=== PATIENT | female | born 1950 | race Caucasian/White ===

== ENCOUNTER 2017-04-22 17:30 | Inpatient (IN) | payer MEDICARE, OTHER ==
[~2017-04-22] VITALS: Ht 162.6 cm; Wt 48.7 kg
[~2017-04-22 17:30] MED LIST: BACL10TA PO; BUDE180H IH; CALC-467 PO; CALC-590 PO; CARB-60 PO; CLON0.5T4 PO; COMBIH IH; GUAI600T PO; MULT1TAB70 PO; OXYB5TAB10 PO; VITAD400 PO
[2017-04-22] MEDS ORDERED: PARO10TA89 PO (17:43)
[2017-04-22] MEDS ORDERED: IPRA4AER IH (17:43)
[2017-04-22] MEDS ORDERED: DONE5TAB PO (17:43)
[2017-04-22] MEDS ORDERED: ASPIRIN 81 MG CHEWABLE TABLET PO ONE (18:00)
[2017-04-22] MEDS ORDERED: IPRATROPIUM BROMIDE 0.5 MG/2.5 ML NEB SOLUTION NEB ONE ×3 (18:00→22:15)
[2017-04-22] MEDS ORDERED: ALBUTEROL SULFATE 2.5 MG/0.5 ML NEB SOLUTION NEB ONE (18:00)
[2017-04-22 18:08] LABS: BASOPHILS % (AUTO) 0.8 % (0.0-2.0); EOSINOPHILS % (AUTO) 0.1 % (1.0-6.0); HEMATOCRIT 36.7 % (36-46); HEMOGLOBIN 12.3 g/dL (12.0-16.0); LYMPHOCYTES # (AUTO) 2.6 K/uL (1.0-4.8); LYMPHOCYTES % (AUTO) 18.3 % (22.0-44.0); MEAN CORPUSCULAR HEMOGLOBIN 32.3 pg (26.0-34.0); MEAN CORPUSCULAR HGB CONC 33.4 G/dL (31.0-37.0); MEAN CORPUSCULAR VOLUME 97 fL (80-100); MONOCYTES # (AUTO) 0.8 K/uL (0.1-1.0); MONOCYTES % (AUTO) 5.6 % (2.0-9.0); NEUTROPHILS # (AUTO) 10.8 K/uL (1.8-7.7); NEUTROPHILS % (AUTO) 75.2 % (40.0-70.0); PLATELET COUNT (AUTO) 207 K/uL (150-450); RED BLOOD CELL COUNT(AUTO) 3.79 MIL/uL (4.00-5.20); RED CELL DISTRIBUTION WIDTH 15.1 % (11.5-14.5); WHITE BLOOD COUNT (AUTO) 14.4 K/uL (4.5-11.0)
[2017-04-22 18:24] LABS: B-TYPE NATRIURETIC PEPTIDE 27 pg/mL (0-100)
[2017-04-22 18:34] LABS: ANION GAP 12 mmol/L (8-16); CALCIUM, TOTAL 10.1 mg/dL (8.8-10.5); CARBON DIOXIDE 26 mmol/L (22-29); CHLORIDE 117 mmol/L (98-107); GLOMERULAR FILTR. RATE CALC 45 mL/min (>60); POTASSIUM 3.7 mmol/L (3.5-5.1); SODIUM SERUM 155 mmol/L (136-145); UREA NITROGEN, BLOOD 55 mg/dL (7-18)
[2017-04-22 18:40] LABS: ALANINE AMINOTRANSFERASE 18 U/L (12-78); ALBUMIN 2.8 g/dL (3.4-5.0); ASPARTATE AMINOTRANSFERASE 17 U/L (15-37); BILIRUBIN,TOTAL 0.2 mg/dL (0.1-1.0); CREATINE KINASE, TOTAL 43 U/L (26-192); TOTAL PROTEIN, SERUM 7.9 g/dL (6.4-8.2)
[2017-04-22] MEDS ORDERED: SODIUM CHLORIDE 0.9% 1,000 ML IV ONE (18:45)
[2017-04-22] MEDS ORDERED: ALBUTEROL SULFATE 5 MG/ML 20 ML NEB SOLN [BULK] NEB ONE ×2 (18:45→22:15)
[2017-04-22] MEDS ORDERED: 0.9% SODIUM CHLORIDE 5 ML NEB SOLUTION NEB ONE ×2 (18:53→22:19)
[2017-04-22] MEDS ORDERED: LEVOFLOXACIN 750 MG/D5% WATER 150 ML IV ONE (19:00)
[2017-04-22] MEDS ORDERED: MethylPREDNISolone SOD SUCC 125 MG/2 ML VIAL IVP ONE (19:00)
[2017-04-22] MEDS ORDERED: SUCCINYLCHOLINE CHLORIDE 20 MG/ML 10 ML VIAL ONE (19:08)
[2017-04-22] MEDS ORDERED: RAPID SEQUENCE KIT [RSI] 1 EACH KIT ONE ×2 (19:08)
[2017-04-22 19:40] LABS: APPEARANCE,URINE CLOUDY (CLEAR); GLUCOSE, URINE (UA) NEGATIVE (NEGATIVE); KETONES,URINE TRACE mg/dL (NEGATIVE); LEUKOCYTE ESTERASE ,URINE SMALL (NEGATIVE); OCCULT BLOOD,URINE SMALL (NEGATIVE); PROTEIN,URINE POS 1+ (NEGATIVE)
[2017-04-22 19:41] LABS: ADD UA MICROSCOPIC YES
[2017-04-22 19:46] LABS: RBC,URINE 0-2 /HPF (0-2); SQUAMOUS EPITHELIAL CELL,UR Rare /LPF (None Seen)
[2017-04-22 22:48] LABS: ABG A-A DIFF O2 205.4 mmHg (10-20.0); ABG BASE EXCESS -7.1 mmol/L (-2.0-3.0); ABG HCO3 18.8 mmol/L (22.0-26.0); ABG OXYHEMOGLOBIN 86.4 % (94.0-100.0); ABG PCO2 40 mmHg (35-45); TEMPERATURE, FAHRENHEIT, BG 97.9 FAHREN (96.0-98.6)
[2017-04-22 22:49] LABS: ALLEN TEST, BLOOD GAS POSITIVE
[2017-04-22] MEDS ORDERED: ONDANSETRON HCL 4 MG/2 ML VIAL IVP PRN (23:45)
[2017-04-22] MEDS ORDERED: MAGNESIUM HYDROXIDE SUSPENSION 30 ML UDCUP PO PRN (23:45)
[2017-04-22] MEDS ORDERED: BISACODYL 10 MG RECTAL RECTAL SUPPOSITORY PR PRN (23:45)
[2017-04-22] MEDS ORDERED: ALBUTEROL SULFATE 2.5 MG/0.5 ML NEB SOLUTION NEB PRN (23:45)
[2017-04-22] MEDS ORDERED: ACETAMINOPHEN 325 MG TABLET PO PRN (23:45)
[2017-04-22] MEDS ORDERED: IPRATROPIUM BROMIDE 0.5 MG/2.5 ML NEB SOLUTION NEB PRN (23:45)
[2017-04-23] MEDS ORDERED: CefTRIAXone 1 GM/DEXTROSE 50 ML IV SCH
[2017-04-23] MEDS: SODIUM CHLORIDE 0.45% 1,000 ML IV SCH ×3 (00:16→18:16)
[2017-04-23] MEDS: HEPARIN SODIUM,PORCINE 5,000 UNITS/ML VIAL SQ SCH ×3 (00:16→21:50)
[2017-04-23 01:01] VITALS: BP 121/73
[2017-04-23 01:47] LABS: PROCALCITONIN (PCT) 0.09 ng/mL (<0.50)
[2017-04-23 01:59] LABS: CALCIUM, TOTAL 9.4 mg/dL (8.8-10.5); CREATININE 1.37 mg/dL (0.60-1.30); POTASSIUM 3.5 mmol/L (3.5-5.1)
[2017-04-23 02:15] LABS: LACTIC ACID 8.3 mmol/L (0.4-2.0)
[2017-04-23] MEDS: IPRATROPIUM BROMIDE 0.5 MG/2.5 ML NEB SOLUTION NEB SCH ×4 (02:50→18:54)
[2017-04-23] MEDS: ALBUTEROL SULFATE 2.5 MG/0.5 ML NEB SOLUTION NEB SCH ×4 (02:50→18:53)
[2017-04-23] MEDS: AZITHROMYCIN 500 MG/NS 250 ML IV SCH (03:25)
[2017-04-23] MEDS: MethylPREDNISolone SOD SUCC 40 MG/ML VIAL IVP SCH ×3 (03:42→16:23)
[2017-04-23 03:44] LABS: REFLEX LACTIC ACID? YES YES
[2017-04-23 04:10] VITALS: BP 129/78
[2017-04-23 05:25] LABS: ALBUMIN 2.4 g/dL (3.4-5.0); BILIRUBIN,TOTAL 0.1 mg/dL (0.1-1.0); CALCIUM, TOTAL 9.2 mg/dL (8.8-10.5); CHOL/HDL RATIO 2.7 (3.9-5.7); CREATININE 1.25 mg/dL (0.60-1.30); PHOSPHORUS 3.1 mg/dL (2.5-4.9); POTASSIUM 3.5 mmol/L (3.5-5.1); THYROID STIMULATING HORMONE 0.14 uIU/mL (0.36-3.74); TOTAL PROTEIN, SERUM 6.8 g/dL (6.4-8.2)
[2017-04-23] MEDS ORDERED: *CLINICAL-CEFEPIME DOSING CLINICAL ONE ×2 (05:30)
[2017-04-23 05:55] LABS: EOSINOPHILS % (AUTO) 0.1 % (1.0-6.0); HEMATOCRIT 31.7 % (36-46); HEMOGLOBIN 10.3 g/dL (12.0-16.0); LYMPHOCYTES # (AUTO) 0.8 K/uL (1.0-4.8); MEAN CORPUSCULAR HEMOGLOBIN 32.3 pg (26.0-34.0); MEAN CORPUSCULAR HGB CONC 32.5 G/dL (31.0-37.0); MEAN CORPUSCULAR VOLUME 99 fL (80-100); MONOCYTES # (AUTO) 0.4 K/uL (0.1-1.0); MONOCYTES % (AUTO) 2.3 % (2.0-9.0); NEUTROPHILS # (AUTO) 17.9 K/uL (1.8-7.7); PLATELET COUNT (AUTO) 180 K/uL (150-450); RED BLOOD CELL COUNT(AUTO) 3.19 MIL/uL (4.00-5.20); RED CELL DISTRIBUTION WIDTH 15.2 % (11.5-14.5); WHITE BLOOD COUNT (AUTO) 19.1 K/uL (4.5-11.0)
[2017-04-23 06:40] LABS: NEUTROPHILS % (AUTO) 93.6 % (40.0-70.0)
[2017-04-23 07:39] VITALS: BP 97/55
[2017-04-23] MEDS ORDERED: [UNRECOGNIZED DRUG - OTHER] PO SCH (09:00)
[2017-04-23 09:19] LABS: CALCIUM, TOTAL 9.5 mg/dL (8.8-10.5); CREATININE 1.09 mg/dL (0.60-1.30); POTASSIUM 4.1 mmol/L (3.5-5.1)
[2017-04-23 10:14] LABS: INFLUENZA TYPE B NEGATIVE FOR TYPE B (NEGATIVE)
[2017-04-23] MEDS: PANTOPRAZOLE SODIUM 40 MG/VIAL IVP SCH (10:48)
[2017-04-23] MEDS: BUDESONIDE 180 MCG/INH INHALER [120] IH SCH (10:48)
[2017-04-23] MEDS: PARoxetine HCL 10 MG TABLET PO SCH (10:49)
[2017-04-23] MEDS: GuaiFENesin SR 600 MG ER TABLET PO SCH ×2 (10:49→21:50)
[2017-04-23] MEDS: BACLOFEN 10 MG TABLET PO SCH ×3 (10:49→21:49)
[2017-04-23] MEDS: CarBAMazepine 200 MG ER TABLET PO SCH ×2 (10:50→21:50)
[2017-04-23] MEDS: MULTIVITAMINS, THERAPEUTIC TABLET PO SCH (10:51)
[2017-04-23] MEDS: DOCUSATE SODIUM 100 MG CAPSULE PO SCH ×2 (10:52→21:49)
[2017-04-23] MEDS: DONEPEZIL HCL 5 MG TABLET PO SCH (10:52)
[2017-04-23 11:19] VITALS: BP 101/53
[2017-04-23] MEDS: CEFEPIME HCL 1 GM in DEXTROSE 5%-WATER 50 ML IV SCH (13:04)
[2017-04-23 14:46] LABS: CALCIUM, TOTAL 9.4 mg/dL (8.8-10.5); CREATININE 0.96 mg/dL (0.60-1.30); POTASSIUM 4.4 mmol/L (3.5-5.1)
[2017-04-23 19:09] LABS: ABG A-A DIFF O2 28.4 mmHg (10-20.0); ABG BASE EXCESS 1.2 mmol/L (-2.0-3.0); ABG HCO3 24.8 mmol/L (22.0-26.0); ABG OXYHEMOGLOBIN 96.5 % (94.0-100.0); ABG PCO2 59 mmHg (35-45); ALLEN TEST, BLOOD GAS Positive; TEMPERATURE, FAHRENHEIT, BG 98.6 FAHREN (96.0-98.6)
[2017-04-23 19:28] VITALS: BP 122/65
[2017-04-23 21:27] LABS: CALCIUM, TOTAL 9.4 mg/dL (8.8-10.5); CREATININE 0.99 mg/dL (0.60-1.30)
[2017-04-23 23:59] VITALS: BP 105/66
[2017-04-24] MEDS ORDERED: SODIUM CHLORIDE 0.9% 0 ML IV ONE (00:41)
[2017-04-24] MEDS: AZITHROMYCIN 500 MG/NS 250 ML IV SCH ×2 (00:50→23:50)
[2017-04-24] MEDS: MethylPREDNISolone SOD SUCC 40 MG/ML VIAL IVP SCH ×4 (00:50→23:50)
[2017-04-24] MEDS: ALBUTEROL SULFATE 2.5 MG/0.5 ML NEB SOLUTION NEB SCH ×4 (02:12→19:12)
[2017-04-24] MEDS: IPRATROPIUM BROMIDE 0.5 MG/2.5 ML NEB SOLUTION NEB SCH ×4 (02:12→19:12)
[2017-04-24] MEDS: SODIUM CHLORIDE 0.45% 1,000 ML IV SCH ×2 (02:52→10:27)
[2017-04-24 05:13] VITALS: BP 102/62
[2017-04-24 07:28] LABS: ANION GAP 8 mmol/L (8-16); CALCIUM, TOTAL 9.1 mg/dL (8.8-10.5); CARBON DIOXIDE 27 mmol/L (22-29); CHLORIDE 115 mmol/L (98-107); CREATININE 0.86 mg/dL (0.60-1.30); GLOMERULAR FILTR. RATE CALC > 60 mL/min (>60); POTASSIUM 4.3 mmol/L (3.5-5.1); SODIUM SERUM 150 mmol/L (136-145); UREA NITROGEN, BLOOD 42 mg/dL (7-18)
[2017-04-24 07:42] VITALS: BP 106/66
[2017-04-24] MEDS: DONEPEZIL HCL 5 MG TABLET PO SCH (08:49)
[2017-04-24] MEDS: PANTOPRAZOLE SODIUM 40 MG/VIAL IVP SCH (08:49)
[2017-04-24] MEDS: DOCUSATE SODIUM 100 MG CAPSULE PO SCH ×2 (08:49→20:54)
[2017-04-24] MEDS: GuaiFENesin SR 600 MG ER TABLET PO SCH ×2 (08:50→20:54)
[2017-04-24] MEDS: BACLOFEN 10 MG TABLET PO SCH ×3 (08:50→20:54)
[2017-04-24] MEDS: PARoxetine HCL 10 MG TABLET PO SCH (08:50)
[2017-04-24] MEDS: CarBAMazepine 200 MG ER TABLET PO SCH ×2 (08:50→20:54)
[2017-04-24] MEDS: MULTIVITAMINS, THERAPEUTIC TABLET PO SCH (08:50)
[2017-04-24] MEDS: HEPARIN SODIUM,PORCINE 5,000 UNITS/ML VIAL SQ SCH ×2 (08:50→20:54)
[2017-04-24] MEDS: BUDESONIDE 180 MCG/INH INHALER [120] IH SCH ×2 (09:00→20:54)
[2017-04-24 09:09] LABS: EOSINOPHILS % (AUTO) 0 % (1.0-6.0); HEMATOCRIT 29.5 % (36-46); HEMOGLOBIN 9.8 g/dL (12.0-16.0); LYMPHOCYTES # (AUTO) 1.2 K/uL (1.0-4.8); LYMPHOCYTES % (AUTO) 7.3 % (22.0-44.0); MEAN CORPUSCULAR HEMOGLOBIN 32.4 pg (26.0-34.0); MEAN CORPUSCULAR HGB CONC 33.2 G/dL (31.0-37.0); MEAN CORPUSCULAR VOLUME 98 fL (80-100); MONOCYTES # (AUTO) 0.3 K/uL (0.1-1.0); MONOCYTES % (AUTO) 2.1 % (2.0-9.0); NEUTROPHILS # (AUTO) 14.5 K/uL (1.8-7.7); PLATELET COUNT (AUTO) 163 K/uL (150-450); RED BLOOD CELL COUNT(AUTO) 3.02 MIL/uL (4.00-5.20); RED CELL DISTRIBUTION WIDTH 14.5 % (11.5-14.5)
[2017-04-24 09:11] LABS: NEUTROPHILS % (AUTO) 90.6 % (40.0-70.0)
[2017-04-24 09:18] LABS: ALANINE AMINOTRANSFERASE 11 U/L (12-78); ALBUMIN 2.3 g/dL (3.4-5.0); ASPARTATE AMINOTRANSFERASE 20 U/L (15-37); BILIRUBIN,TOTAL 0.2 mg/dL (0.1-1.0); TOTAL PROTEIN, SERUM 6.2 g/dL (6.4-8.2)
[2017-04-24 11:52] VITALS: BP 110/68
[2017-04-24 12:35] LABS: ANION GAP 8 mmol/L (8-16); CALCIUM, TOTAL 8.9 mg/dL (8.8-10.5); CARBON DIOXIDE 27 mmol/L (22-29); CHLORIDE 113 mmol/L (98-107); CREATININE 0.83 mg/dL (0.60-1.30); GLOMERULAR FILTR. RATE CALC > 60 mL/min (>60); SODIUM SERUM 148 mmol/L (136-145); UREA NITROGEN, BLOOD 41 mg/dL (7-18)
[2017-04-24] MEDS: CEFEPIME HCL 1 GM in DEXTROSE 5%-WATER 50 ML IV SCH (12:44)
[2017-04-24] MEDS ORDERED: DEXTROSE 5%-WATER 1,000 ML IV ONE (13:45)
[2017-04-24 15:49] VITALS: BP 107/64
[2017-04-24 19:44] VITALS: BP 103/61
[2017-04-24 23:47] VITALS: BP 97/55
[2017-04-25 00:35] LABS: ANION GAP 10 mmol/L (8-16); CALCIUM, TOTAL 8.8 mg/dL (8.8-10.5); CARBON DIOXIDE 24 mmol/L (22-29); CHLORIDE 111 mmol/L (98-107); CREATININE 0.88 mg/dL (0.60-1.30); GLOMERULAR FILTR. RATE CALC > 60 mL/min (>60); POTASSIUM 4.7 mmol/L (3.5-5.1); SODIUM SERUM 145 mmol/L (136-145); UREA NITROGEN, BLOOD 32 mg/dL (7-18)
[2017-04-25] MEDS: IPRATROPIUM BROMIDE 0.5 MG/2.5 ML NEB SOLUTION NEB SCH ×4 (01:56→20:47)
[2017-04-25] MEDS: ALBUTEROL SULFATE 2.5 MG/0.5 ML NEB SOLUTION NEB SCH ×4 (01:56→20:46)
[2017-04-25 04:46] VITALS: BP 118/59
[2017-04-25 07:17] VITALS: BP 131/71
[2017-04-25 07:21] LABS: BASOPHILS % (AUTO) 0.9 % (0.0-2.0); EOSINOPHILS % (AUTO) 0 % (1.0-6.0); HEMATOCRIT 30.4 % (36-46); HEMOGLOBIN 10.3 g/dL (12.0-16.0); LYMPHOCYTES # (AUTO) 1.5 K/uL (1.0-4.8); LYMPHOCYTES % (AUTO) 15.8 % (22.0-44.0); MEAN CORPUSCULAR HEMOGLOBIN 32.6 pg (26.0-34.0); MEAN CORPUSCULAR HGB CONC 33.9 G/dL (31.0-37.0); MEAN CORPUSCULAR VOLUME 96 fL (80-100); MONOCYTES # (AUTO) 0.5 K/uL (0.1-1.0); MONOCYTES % (AUTO) 4.9 % (2.0-9.0); NEUTROPHILS # (AUTO) 7.4 K/uL (1.8-7.7); NEUTROPHILS % (AUTO) 78.4 % (40.0-70.0); PLATELET COUNT (AUTO) 164 K/uL (150-450); RED BLOOD CELL COUNT(AUTO) 3.16 MIL/uL (4.00-5.20); RED CELL DISTRIBUTION WIDTH 14.4 % (11.5-14.5); WHITE BLOOD COUNT (AUTO) 9.5 K/uL (4.5-11.0)
[2017-04-25 07:49] LABS: ALANINE AMINOTRANSFERASE 14 U/L (12-78); ALBUMIN 2.4 g/dL (3.4-5.0); ANION GAP 8 mmol/L (8-16); ASPARTATE AMINOTRANSFERASE 22 U/L (15-37); BILIRUBIN,TOTAL 0.1 mg/dL (0.1-1.0); CALCIUM, TOTAL 8.9 mg/dL (8.8-10.5); CARBON DIOXIDE 29 mmol/L (22-29); CHLORIDE 111 mmol/L (98-107); CREATININE 0.88 mg/dL (0.60-1.30); GLOMERULAR FILTR. RATE CALC > 60 mL/min (>60); POTASSIUM 4.1 mmol/L (3.5-5.1); SODIUM SERUM 148 mmol/L (136-145); TOTAL PROTEIN, SERUM 6.4 g/dL (6.4-8.2); UREA NITROGEN, BLOOD 27 mg/dL (7-18)
[2017-04-25] MEDS: PANTOPRAZOLE SODIUM 40 MG/VIAL IVP SCH (09:02)
[2017-04-25] MEDS: MethylPREDNISolone SOD SUCC 40 MG/ML VIAL IVP SCH ×3 (09:02→23:38)
[2017-04-25] MEDS: BACLOFEN 10 MG TABLET PO SCH ×3 (09:03→20:43)
[2017-04-25] MEDS: BUDESONIDE 180 MCG/INH INHALER [120] IH SCH ×2 (09:03→20:42)
[2017-04-25] MEDS: MULTIVITAMINS, THERAPEUTIC TABLET PO SCH (09:04)
[2017-04-25] MEDS: HEPARIN SODIUM,PORCINE 5,000 UNITS/ML VIAL SQ SCH ×2 (09:04→20:42)
[2017-04-25] MEDS: DOCUSATE SODIUM 100 MG CAPSULE PO SCH ×2 (09:04→20:43)
[2017-04-25] MEDS: PARoxetine HCL 10 MG TABLET PO SCH (09:05)
[2017-04-25] MEDS: CarBAMazepine 200 MG ER TABLET PO SCH ×2 (09:05→20:43)
[2017-04-25] MEDS: GuaiFENesin SR 600 MG ER TABLET PO SCH ×2 (09:06→20:43)
[2017-04-25] MEDS: DONEPEZIL HCL 5 MG TABLET PO SCH (09:16)
[2017-04-25 11:27] VITALS: BP 115/65
[2017-04-25] MEDS: CEFEPIME HCL 1 GM in DEXTROSE 5%-WATER 50 ML IV SCH (11:57)
[2017-04-25] MEDS: DEXTROSE 5%-0.45% SODIUM CHL 1,000 ML IV SCH (12:28)
[2017-04-25 15:20] VITALS: BP 118/61
[2017-04-25 20:15] VITALS: BP 116/65
[2017-04-25 23:31] VITALS: BP 126/65
[2017-04-26] MEDS: DEXTROSE 5%-0.45% SODIUM CHL 1,000 ML IV SCH ×2 (00:54→15:32)
[2017-04-26] MEDS: AZITHROMYCIN 500 MG/NS 250 ML IV SCH (00:54)
[2017-04-26] MEDS: IPRATROPIUM BROMIDE 0.5 MG/2.5 ML NEB SOLUTION NEB SCH ×4 (02:39→19:42)
[2017-04-26] MEDS: ALBUTEROL SULFATE 2.5 MG/0.5 ML NEB SOLUTION NEB SCH ×4 (02:39→19:42)
[2017-04-26 04:31] VITALS: BP 138/75
[2017-04-26 06:55] LABS: ALANINE AMINOTRANSFERASE 16 U/L (12-78); ALBUMIN 2.3 g/dL (3.4-5.0); ANION GAP 10 mmol/L (8-16); ASPARTATE AMINOTRANSFERASE 24 U/L (15-37); BILIRUBIN,TOTAL 0.1 mg/dL (0.1-1.0); CALCIUM, TOTAL 8.8 mg/dL (8.8-10.5); CARBON DIOXIDE 25 mmol/L (22-29); CHLORIDE 108 mmol/L (98-107); CREATININE 0.76 mg/dL (0.60-1.30); GLOMERULAR FILTR. RATE CALC > 60 mL/min (>60); POTASSIUM 4.4 mmol/L (3.5-5.1); SODIUM SERUM 143 mmol/L (136-145); TOTAL PROTEIN, SERUM 6.4 g/dL (6.4-8.2); UREA NITROGEN, BLOOD 21 mg/dL (7-18)
[2017-04-26 07:20] VITALS: BP 135/60
[2017-04-26 07:44] LABS: BASOPHILS % (AUTO) 0.3 % (0.0-2.0); EOSINOPHILS % (AUTO) 0.1 % (1.0-6.0); HEMATOCRIT 31.6 % (36-46); HEMOGLOBIN 10.7 g/dL (12.0-16.0); LYMPHOCYTES # (AUTO) 1.5 K/uL (1.0-4.8); LYMPHOCYTES % (AUTO) 18.2 % (22.0-44.0); MEAN CORPUSCULAR HEMOGLOBIN 32.4 pg (26.0-34.0); MEAN CORPUSCULAR HGB CONC 33.8 G/dL (31.0-37.0); MEAN CORPUSCULAR VOLUME 96 fL (80-100); MONOCYTES # (AUTO) 0.2 K/uL (0.1-1.0); MONOCYTES % (AUTO) 1.9 % (2.0-9.0); NEUTROPHILS # (AUTO) 6.7 K/uL (1.8-7.7); NEUTROPHILS % (AUTO) 79.5 % (40.0-70.0); PLATELET COUNT (AUTO) 173 K/uL (150-450); RED CELL DISTRIBUTION WIDTH 14.2 % (11.5-14.5); WHITE BLOOD COUNT (AUTO) 8.5 K/uL (4.5-11.0)
[2017-04-26] MEDS: PARoxetine HCL 10 MG TABLET PO SCH (08:33)
[2017-04-26] MEDS: MethylPREDNISolone SOD SUCC 40 MG/ML VIAL IVP SCH ×2 (08:33→16:07)
[2017-04-26] MEDS: HEPARIN SODIUM,PORCINE 5,000 UNITS/ML VIAL SQ SCH ×2 (08:33→21:03)
[2017-04-26] MEDS: PANTOPRAZOLE SODIUM 40 MG/VIAL IVP SCH (08:33)
[2017-04-26] MEDS: DOCUSATE SODIUM 100 MG CAPSULE PO SCH ×2 (08:33→21:04)
[2017-04-26] MEDS: MULTIVITAMINS, THERAPEUTIC TABLET PO SCH (08:34)
[2017-04-26] MEDS: GuaiFENesin SR 600 MG ER TABLET PO SCH ×2 (08:34→21:04)
[2017-04-26] MEDS: BACLOFEN 10 MG TABLET PO SCH ×3 (08:34→21:04)
[2017-04-26] MEDS: CarBAMazepine 200 MG ER TABLET PO SCH ×2 (08:34→21:03)
[2017-04-26] MEDS: DONEPEZIL HCL 5 MG TABLET PO SCH (08:34)
[2017-04-26] MEDS: BUDESONIDE 180 MCG/INH INHALER [120] IH SCH ×2 (08:35→21:04)
[2017-04-26] MEDS: CEFEPIME HCL 1 GM in DEXTROSE 5%-WATER 50 ML IV SCH (10:56)
[2017-04-26 11:26] VITALS: BP 151/62
[2017-04-26 15:15] VITALS: BP 136/70
[2017-04-26] MEDS ORDERED: PNEUMOCOCCAL VACCINE POLYVALENT 0.5 ML VIAL [PPSV23] IM ONE (19:45)
[2017-04-26 20:26] VITALS: BP 130/66
[2017-04-27] VITALS (7 sets, daily range): BP systolic 110–136; BP diastolic 56–74
[2017-04-27] MEDS: AZITHROMYCIN 500 MG/NS 250 ML IV SCH (00:44)
[2017-04-27] MEDS: ALBUTEROL SULFATE 2.5 MG/0.5 ML NEB SOLUTION NEB SCH ×4 (01:59→20:12)
[2017-04-27] MEDS: IPRATROPIUM BROMIDE 0.5 MG/2.5 ML NEB SOLUTION NEB SCH ×4 (01:59→20:12)
[2017-04-27] MEDS: DEXTROSE 5%-0.45% SODIUM CHL 1,000 ML IV SCH ×2 (06:08→17:20)
[2017-04-27 07:30] LABS: ALANINE AMINOTRANSFERASE 36 U/L (12-78); ALBUMIN 2.4 g/dL (3.4-5.0); ANION GAP 7 mmol/L (8-16); ASPARTATE AMINOTRANSFERASE 36 U/L (15-37); BILIRUBIN,TOTAL 0.2 mg/dL (0.1-1.0); CALCIUM, TOTAL 8.8 mg/dL (8.8-10.5); CARBON DIOXIDE 29 mmol/L (22-29); CHLORIDE 106 mmol/L (98-107); CREATININE 0.78 mg/dL (0.60-1.30); GLOMERULAR FILTR. RATE CALC > 60 mL/min (>60); POTASSIUM 4.2 mmol/L (3.5-5.1); SODIUM SERUM 142 mmol/L (136-145); TOTAL PROTEIN, SERUM 6.2 g/dL (6.4-8.2); UREA NITROGEN, BLOOD 15 mg/dL (7-18)
[2017-04-27 07:38] LABS: BASOPHILS # (AUTO) 0.03 K/uL (0.00-0.20); BASOPHILS % (AUTO) 0.3 % (0.0-2.0); EOSINOPHILS % (AUTO) 0.02 % (1.0-6.0); HEMATOCRIT 31.1 % (36-46); HEMOGLOBIN 10.2 g/dL (12.0-16.0); LYMPHOCYTES # (AUTO) 1.7 K/uL (1.0-4.8); LYMPHOCYTES % (AUTO) 17.2 % (22.0-44.0); MEAN CORPUSCULAR HEMOGLOBIN 32.2 pg (26.0-34.0); MEAN CORPUSCULAR HGB CONC 32.6 G/dL (31.0-37.0); MEAN CORPUSCULAR VOLUME 99 fL (80-100); MONOCYTES # (AUTO) 0.3 K/uL (0.1-1.0); MONOCYTES % (AUTO) 3.2 % (2.0-9.0); NEUTROPHILS # (AUTO) 7.8 K/uL (1.8-7.7); NEUTROPHILS % (AUTO) 79.3 % (40.0-70.0); PLATELET COUNT (AUTO) 166 K/uL (150-450); RED BLOOD CELL COUNT(AUTO) 3.15 MIL/uL (4.00-5.20); WHITE BLOOD COUNT (AUTO) 9.9 K/uL (4.5-11.0)
[2017-04-27] MEDS: BACLOFEN 10 MG TABLET PO SCH ×3 (08:09→21:01)
[2017-04-27] MEDS: PANTOPRAZOLE SODIUM 40 MG/VIAL IVP SCH (08:09)
[2017-04-27] MEDS: DOCUSATE SODIUM 100 MG CAPSULE PO SCH ×2 (08:09→21:01)
[2017-04-27] MEDS: HEPARIN SODIUM,PORCINE 5,000 UNITS/ML VIAL SQ SCH ×2 (08:09→21:01)
[2017-04-27] MEDS: MethylPREDNISolone SOD SUCC 40 MG/ML VIAL IVP SCH ×3 (08:09→16:00)
[2017-04-27] MEDS: DONEPEZIL HCL 5 MG TABLET PO SCH (08:10)
[2017-04-27] MEDS: MULTIVITAMINS, THERAPEUTIC TABLET PO SCH (08:10)
[2017-04-27] MEDS: CarBAMazepine 200 MG ER TABLET PO SCH ×2 (08:10→21:01)
[2017-04-27] MEDS: PARoxetine HCL 10 MG TABLET PO SCH (08:10)
[2017-04-27] MEDS: GuaiFENesin SR 600 MG ER TABLET PO SCH ×2 (08:14→21:01)
[2017-04-27] MEDS: BUDESONIDE 180 MCG/INH INHALER [120] IH SCH ×2 (08:14→21:02)
[2017-04-27 12:07] LABS: ORGANISM ID Not indicated.
[2017-04-27] MEDS: CEFEPIME HCL 1 GM in DEXTROSE 5%-WATER 50 ML IV SCH (13:21)
[2017-04-27] MEDS ORDERED: CEFU250T58 PO (16:15)
[2017-04-27] MEDS ORDERED: PRED1 PO (16:17)
[2017-04-27] MEDS: CEFUROXIME AXETIL 250 MG TABLET PO SCH (21:02)
[2017-04-27 21:13] LABS: MYCOPLASMA AB IGG 1099 U/mL (0-99)
[2017-04-28] MEDS: IPRATROPIUM BROMIDE 0.5 MG/2.5 ML NEB SOLUTION NEB SCH ×3 (03:09→14:30)
[2017-04-28] MEDS: ALBUTEROL SULFATE 2.5 MG/0.5 ML NEB SOLUTION NEB SCH ×3 (03:09→14:30)
[2017-04-28 03:30] VITALS: BP 127/68
[2017-04-28 06:29] LABS: BASOPHILS % (AUTO) 0.1 % (0.0-2.0); EOSINOPHILS % (AUTO) 0.1 % (1.0-6.0); HEMATOCRIT 34.7 % (36-46); HEMOGLOBIN 11.7 g/dL (12.0-16.0); LYMPHOCYTES # (AUTO) 4.4 K/uL (1.0-4.8); LYMPHOCYTES % (AUTO) 37.4 % (22.0-44.0); MEAN CORPUSCULAR HEMOGLOBIN 32.7 pg (26.0-34.0); MEAN CORPUSCULAR HGB CONC 33.6 G/dL (31.0-37.0); MEAN CORPUSCULAR VOLUME 97 fL (80-100); MONOCYTES # (AUTO) 0.7 K/uL (0.1-1.0); MONOCYTES % (AUTO) 6.3 % (2.0-9.0); NEUTROPHILS # (AUTO) 6.5 K/uL (1.8-7.7); NEUTROPHILS % (AUTO) 56.1 % (40.0-70.0); PLATELET COUNT (AUTO) 183 K/uL (150-450); RED BLOOD CELL COUNT(AUTO) 3.56 MIL/uL (4.00-5.20); RED CELL DISTRIBUTION WIDTH 14.2 % (11.5-14.5); WHITE BLOOD COUNT (AUTO) 11.7 K/uL (4.5-11.0)
[2017-04-28] MEDS: DEXTROSE 5%-0.45% SODIUM CHL 1,000 ML IV SCH (06:40)
[2017-04-28 07:05] LABS: ALANINE AMINOTRANSFERASE 71 U/L (12-78); ALBUMIN 2.8 g/dL (3.4-5.0); ANION GAP 8 mmol/L (8-16); ASPARTATE AMINOTRANSFERASE 80 U/L (15-37); BILIRUBIN,TOTAL 0.2 mg/dL (0.1-1.0); CALCIUM, TOTAL 8.9 mg/dL (8.8-10.5); CARBON DIOXIDE 29 mmol/L (22-29); CHLORIDE 104 mmol/L (98-107); CREATININE 0.79 mg/dL (0.60-1.30); GLOMERULAR FILTR. RATE CALC > 60 mL/min (>60); POTASSIUM 3.7 mmol/L (3.5-5.1); SODIUM SERUM 141 mmol/L (136-145); TOTAL PROTEIN, SERUM 6.8 g/dL (6.4-8.2); UREA NITROGEN, BLOOD 14 mg/dL (7-18)
[2017-04-28 07:44] VITALS: BP 153/77
[2017-04-28] MEDS: MULTIVITAMINS, THERAPEUTIC TABLET PO SCH (08:24)
[2017-04-28] MEDS: PANTOPRAZOLE SODIUM 40 MG/VIAL IVP SCH (08:24)
[2017-04-28] MEDS: GuaiFENesin SR 600 MG ER TABLET PO SCH (08:24)
[2017-04-28] MEDS: CEFUROXIME AXETIL 250 MG TABLET PO SCH (08:26)
[2017-04-28] MEDS: DONEPEZIL HCL 5 MG TABLET PO SCH (08:26)
[2017-04-28] MEDS: HEPARIN SODIUM,PORCINE 5,000 UNITS/ML VIAL SQ SCH (08:26)
[2017-04-28] MEDS: DOCUSATE SODIUM 100 MG CAPSULE PO SCH (08:26)
[2017-04-28] MEDS: CarBAMazepine 200 MG ER TABLET PO SCH (08:26)
[2017-04-28] MEDS: BUDESONIDE 180 MCG/INH INHALER [120] IH SCH (08:26)
[2017-04-28] MEDS: PARoxetine HCL 10 MG TABLET PO SCH (08:26)
[2017-04-28] MEDS: BACLOFEN 10 MG TABLET PO SCH ×2 (08:27→16:00)
[2017-04-28] MEDS ORDERED: PredniSONE 20 MG TABLET PO SCH (09:00)
[2017-04-28 12:37] VITALS: BP 108/79
[2017-04-28 16:15] VITALS: BP 118/70
[2017-04-30] MEDS ORDERED: PredniSONE 20 MG TABLET PO SCH (09:00)
[2017-05-02] MEDS ORDERED: PredniSONE 10 MG TABLET PO SCH (09:00)
== END 2017-04-28 17:05 | disposition home or self-care (01) | DRG 871 ==
LOC: EMS 17:42 → 5N 22:30 → 6N 04-25 19:30
PROVIDERS: ADMIT Internal Medicine; ATTEND Internal Medicine
DX: A41.9 Sepsis, unspecified organism (principal); G92 Toxic encephalopathy; N39.0 Urinary tract infection, site not specified; E87.0 Hyperosmolality and hypernatremia; J44.1 Chronic obstructive pulmonary disease with (acute) exacerbation; G80.9 Cerebral palsy, unspecified; G40.909 Epilepsy, unspecified, not intractable, without status epilepticus; E86.0 Dehydration; G30.9 Alzheimer's disease, unspecified; F02.80 Dementia in other diseases classified elsewhere, unspecified severity, without behavioral disturbance, psychotic disturbance, mood disturbance, and anxiety; Z87.440 Personal history of urinary (tract) infections; Z87.01 Personal history of pneumonia (recurrent)
CPT/HCPCS: 51702; 70450; 82805; 83605; 83735; 84100; 84145; 84439; 84443; 87040; 87081; 87086; 87449; 87798; 87804; 87899; 90471; 92526; 92610; 93005; 93306; 93970; 94640; 94644; 94660; 96365; 96374; 96375; 97161; 97166; 99291; C9113; J0330; J0456; J0692; J0696; J1644; J1956; J2920; J2930; J3535; J7030; J7060